=== PATIENT | male | born 1995 | race Two or more races ===

== ENCOUNTER 2023-01-07 15:32 | Outpatient (REF) | payer MEDICAID, SELFPAY ==
--- NOTE | ~2023-01-07 | XR_ITS ---
EXAMINATION: XR SHOULDER, RIGHT CLINICAL INFORMATION: Chronic right shoulder pain. COMPARISON: None available. TECHNIQUE: Four views of the right shoulder. FINDINGS: The bones and soft tissues are normal. No fracture. Glenohumeral and acromioclavicular alignment is anatomic with normal joint space. No abnormal soft tissue calcifications. XR/XR shoulder RT min 2V IMPRESSION: Normal right shoulder.
== END 2023-01-07 15:33 | disposition home or self-care (01) ==
LOC: HO.HHCX 15:32
PROVIDERS: Visit Provider Internal Medicine
DX: M25.511 Pain in right shoulder (principal)
CPT/HCPCS: 73030

== ENCOUNTER 2024-01-12 11:43 | Outpatient (REF) | payer MEDICAID, SELFPAY ==
[2024-01-12 13:21] LABS: MANUAL DIFF FLAG NO
[2024-01-12 13:37] LABS: Basophils Absolute Auto 0.1 X10*3/uL (0.0-0.2); Basophils Percent Auto 1.4 % (0-2); Eosinophils Absolute Auto 0.1 X10*3/uL (0.0-0.4); Eosinophils Percent Auto 3.2 % (0-4); Hematocrit 40.2 % (42.0-52.0); Hemoglobin 13.3 g/dl (14.0-18.0); Imm Gran Abs Auto 0.01 X10*3/uL (0.00-0.03); Imm Gran Pct Auto 0.2 % (0.0-0.4); Lymphocytes Absolute Auto 1.2 X10*3/uL (1.2-4.9); Lymphocytes Percent Auto 28.6 % (20-40); Mean Corpuscular HGB Conc 33.1 g/dl (31.0-36.0); Mean Corpuscular Hemoglobin 31.5 pg (27.0-33.0); Mean Corpuscular Volume 95.3 fL (80.0-98.0); Mean Platelet Volume 11.3 fL (9.4-12.4); Monocytes Absolute Auto 0.4 X10*3/uL (0.1-1.2); Monocytes Percent Auto 9.9 % (2-11); Neutrophils Absolute Auto 2.5 x10*3/uL (2.0-8.3); Neutrophils Percent Auto 56.7 % (45-73); Platelet Count 191 X10*3/uL (160-400); Red Blood Count 4.22 X10*6/uL (4.60-5.80); Red Cell Distribution Width 11.7 % (11.0-16.0); White Blood Count 4.3 X10*3/uL (4.8-10.8)
[2024-01-12 13:52] LABS: Appearance Urine Clear; Color Urine Yellow; Glucose Urine UA Negative (Negative); Leukocyte Esterase Urine Negative (Negative); Nitrite Urine Negative (Negative); PH 6.5 (5.0-9.0); Urine Blood Negative (Negative); Urine Ketones Negative (Negative); Urine Protein Negative (Neg-Trace)
[2024-01-12 14:00] LABS: Bacteria Urine None Seen (None Seen); Hyaline Casts Urine 0-2 /LPF (0-2); RBC Urine 0-2 /HPF (0-2); Squamous Epithelial Cell Urine 0-2 /HPF (0-2); WBC Urine 0-5 /HPF (0-5)
[2024-01-12 14:11] LABS: Alanine Aminotransferase 13 U/L (0-40); Albumin Level 4.4 g/dL (3.5-5.0); Alkaline Phosphatase 55 U/L (39-117); Anion Gap 11 (12-20); Aspartate Amino Transferase 15 U/L (5-37); Bilirubin Total 0.4 mg/dL (0.0-1.0); Blood Urea Nitrogen 8 mg/dL (9-16); Calcium 9.8 mg/dL (8.4-10.2); Carbon Dioxide 26 mmol/L (22-29); Chloride 110 mmol/L (96-108); Estimated Glomerular Filt Rate > 60; Glucose Random 88 mg/dL (60-115); Potassium 4.5 mmol/L (3.3-5.1); Sodium 142 mmol/L (135-145); Total Protein 7.1 g/dL (6.5-8.0)
[2024-01-13 08:37] LABS: HBS Num1 8.93 mIU/mL (0-7.99); HBc Num1 0.11 S/CO (0.00-0.79); HBsAGNum1 0.48 S/CO (0.00-0.99); HIV AB/AG Nonreactive (Nonreactive); HIV Num 1 0.04 S/CO (0.00-0.99); Hepatitis B Core Antibody Nonreactive (Nonreactive); Hepatitis B Surface Antigen Negative (Negative); ~HepC Num1 0.09 S/CO (0.00-0.79); ~Hepatitis C Antibody Nonreactive (Nonreactive)
[2024-01-13 09:32] LABS: HBS Num2 9.39 mIU/mL (0-7.99); HBS Num3 9.42 mIU/mL (0-7.99); ~Hepatitis B Surface Antibody GRAYZONE (Nonreactive)
[2024-01-13 19:33] LABS: Immunoglobulin A 273 mg/dL (47-310); Transglutaminase IgA <1.0 U/mL
== END 2024-01-12 11:44 | disposition home or self-care (01) ==
LOC: HO.HHCL 11:43
PROVIDERS: Visit Provider Emergency Medicine
DX: R10.84 Generalized abdominal pain (principal)
CPT/HCPCS: 36415; 80053; 81001; 82784; 85025; 86364; 86704; 86706; 86803; 87340; 87389

== ENCOUNTER 2024-01-25 08:57 | Outpatient (REF) | payer MEDICAID, SELFPAY ==
--- NOTE | ~2024-01-25 | CT_ITS ---
EXAMINATION: CT ABDOMEN AND PELVIS WITH CONTRAST CLINICAL INFORMATION: History of chronic diffuse abdominal pain and nausea COMPARISON: None TECHNIQUE: Multiple axial images were obtained from the superior aspect of the liver through the pubic symphysis after the administration of 85 mL of intravenous Omnipaque. Images were evaluated on independent dedicated 3-D workstation and 3-D images were reconstructed with concurrent radiologist supervision and subsequently interpreted. Oral contrast was administered. This CT examination was performed using dose optimization techniques as appropriate, variously including the following: *Automated exposure control *Adjustment of mA and/or kV according to patient size (this includes techniques or standardized protocols for targeted exams where dose is matched to indication/reason for exam; i.e. extremities or head) *Use of iterative reconstruction technique Motion Limited study of the upper abdomen. DLP: 286 mGy-cm FINDINGS: LUNG BASES: The visualized lung bases are clear. CARDIOMEDIASTINUM: The visualized heart is normal in size without pericardial effusion. No coronary artery calcification. LIVER: Homogeneous in attenuation. Normal in size. GALLBLADDER: Noninflamed. BILIARY SYSTEM: No intrahepatic or extrahepatic biliary dilation. PANCREAS: Homogeneous in attenuation. SPLEEN: Normal in size. GENITOURINARY: Bilateral kidneys demonstrate symmetric enhancement. No perinephric fluid collection. No renal calculi. No hydroureteronephrosis. ADRENAL GLANDS: Unremarkable. REPRODUCTIVE: Prostate present. GASTROINTESTINAL: The visualized alimentary tract is normal in course. No evidence of obstruction. APPENDIX: The appendix is not visualized; however, no pericecal inflammatory changes are seen in the right lower quadrant. PERITONEUM: No pneumoperitoneum. No intra-abdominal fluid collection. VASCULATURE: The abdominal aorta is normal in course and caliber. LYMPH NODES: No pathologically enlarged abdominal or pelvic lymph nodes. SOFT TISSUES/MUSCULOSKELETAL: There is no acute fracture or significant focal osseous lesion. CT/CT abdomen pelvis w IV con IMPRESSION: No acute abdominal or pelvic pathology. Fleischner guidelines were followed. Electronically signed by: Saqib Martinez DO 02/15/2024 07:15 PM [facility]
[2024-01-25] MEDS: iohexoL 350 MG/ML 100 ML INFUS..BTL IV (11:39)
[2024-01-25] MEDS: Barium Sulfate Oral (Mocha) 450 ML ORAL.SUSP PO ×2 (11:39)
== END 2024-01-25 08:58 | disposition home or self-care (01) ==
LOC: HO.CT 08:57
PROVIDERS: Visit Provider Emergency Medicine
DX: R10.84 Generalized abdominal pain (principal)
CPT/HCPCS: 74177; Q9967

== ENCOUNTER 2024-02-29 09:13 | Outpatient (REF) | payer MEDICAID, SELFPAY ==
[2024-02-29 10:50] LABS: Hematocrit 40.9 % (42.0-52.0); Hemoglobin 13.3 g/dl (14.0-18.0); Mean Corpuscular HGB Conc 32.5 g/dl (31.0-36.0); Mean Corpuscular Hemoglobin 31.4 pg (27.0-33.0); Mean Corpuscular Volume 96.5 fL (80.0-98.0); Mean Platelet Volume 10.9 fL (9.4-12.4); Platelet Count 191 X10*3/uL (160-400); Red Blood Count 4.24 X10*6/uL (4.60-5.80); Red Cell Distribution Width 12.1 % (11.0-16.0); White Blood Count 4.3 X10*3/uL (4.8-10.8)
[2024-02-29 11:00] LABS: Estimated Average Glucose 105 mg/dL; Hemoglobin A1C 116.8468 umol/L; Hemoglobin A1c % 5.3 % (<6.0); Total Hemoglobin (HGBA1C) 3372.5871 umol/L
[2024-02-29 11:39] LABS: Alanine Aminotransferase 25 U/L (0-40); Albumin Level 4.4 g/dL (3.5-5.0); Alkaline Phosphatase 53 U/L (39-117); Anion Gap 9 (12-20); Aspartate Amino Transferase 21 U/L (5-37); Bilirubin Total 0.3 mg/dL (0.0-1.0); Blood Urea Nitrogen 9 mg/dL (9-16); C Reactive Protein < 0.04 mg/dL (< or = 0.50); Calcium 9.4 mg/dL (8.4-10.2); Carbon Dioxide 29 mmol/L (22-29); Chloride 108 mmol/L (96-108); Estimated Glomerular Filt Rate > 60; Glucose Random 95 mg/dL (60-115); Iron 44 mcg/dL (45-160); Percent Iron Saturation 17 % (15-50); Sodium 142 mmol/L (135-145); Total Iron Binding Capacity 252 mcg/dL (228-428); Total Protein 7.1 g/dL (6.5-8.0); Unsaturated Iron Binding 208 ug/dL
[2024-02-29 11:50] LABS: Folate 9.9 ng/mL (> or = 4.0); TSH reflex Free T4 1.46 uIU/mL (0.32-4.0); Vitamin B12 1085 pg/mL (200-900)
[2024-02-29 11:54] LABS: Ferritin 78 ng/mL (20-250)
[2024-03-01 16:14] LABS: Immunoglobulin A 267 mg/dL (47-310); Immunoglobulin G 1197 mg/dL (600-1640)
[2024-03-01 17:43] LABS: Transglutaminase IgA <1.0 U/mL
== END 2024-02-29 09:14 | disposition home or self-care (01) ==
LOC: HO.LAB 09:13
PROVIDERS: PCP Emergency Medicine; Visit Provider Internal Medicine
DX: R19.4 Change in bowel habit (principal); D64.9 Anemia, unspecified; R10.9 Unspecified abdominal pain
CPT/HCPCS: 36415; 80053; 82607; 82728; 82746; 82784; 83036; 83540; 84443; 85027; 86140; 86364; 99202

== ENCOUNTER 2024-02-29 09:13 | Outpatient (AMB) | payer MEDICAID, SELFPAY ==
--- NOTE | 2024-02-29 09:14 | A.OFFVIS_ITS ---
Vital Signs 02/29/24 09:15 Height 5 ft 11 in Weight 176 lb 5.917 oz BMI 24.6 BP 129/78 Blood Pressure Location Lt brachial Position Sitting Pulse 68 Intake Visit Reasons: Generalized abdominal pain Intake Note: Dariel presents in the office as a new patient for generalizedd abdominal pains. CC: HE states that he had lost 50lbs due to his stomach issues and now has gained 15. Stomach bothers him every time he eats. After fruits and veggies but he noticed as well when he eats cabbage and dairy that his stomach bothers him. He states he gets both constipation and diarrhea - he has gotten a lot better. He used to have 6 BMs a day and now it is up to 1-3 times a day. Allergies cabbage Allergy (Mild, Verified 02/29/24 09:17) stomach issues Milk Containing Products (Dairy) Allergy (Mild, Verified 02/29/24 09:17) Swelling tomato Allergy (Mild, Verified 02/29/24 09:17) Anaphylaxis HPI Comments Details: 28 y.o M with longstanding abd discomfort and diarrhea who is here today for recent change in bowel habits. Reports for 5 years he has on and off abd discomfort on both R and L side which is associated with loose BMs up to 2-3 a day. Recently for the past 6 months the pain is now everyday and more severe. BMs have also increased to 6 per day. Has been avoiding dairy for the last couple of weeks and thinks that has helped. Reports frequent lightheadedness due to diarrhea. Also has nausea and reduced appetite. Reports losing 50 lbs in the past year but denies having to change clothing side? No fam hx of IBD or CRC in first degree relatives. Pt used to smoke marijuana - stopped for a year. Also stopped drinking x 2 years. [facility] Family History (Updated 02/29/24 @ 09:19 by MIREYA Holman) Maternal Aunt Colon cancer Review of Systems Const All systems reviewed & are unremarkable except as noted in HPI and below Physical Exam Vital Signs: Last Vital Signs Pulse 68 02/29/24 09:15 BP 129/78 02/29/24 09:15 BMI result Body Mass Index 24.6 Results Reviewed Results Reviewed: CT Abd/pel with IV contrast 12/2023: GASTROINTESTINAL: The visualized alimentary tract is normal in course. No evidence of obstruction. Assessment & Plan Assessment & Plan (1) Abdominal pain: Code(s): R10.9 - Unspecified abdominal pain Category: Medical (2) Change in bowel habit: Code(s): R19.4 - Change in bowel habit Category: Medical (3) Anemia: Code(s): D64.9 - Anemia, unspecified Category: Medical Plan Abd pain with change in bowel habits. Also noted on labs is normocytic anemia. Degree of weight loss is unclear. Hep serologies and HIV negative. LFTs normal. CT abd/pel normal. Ddx include PUD, IBD, gallstones, mass, IBS. Plan: - Labs as below - US Abd - Get weights from past 24 months from PCP - Indication for EGD/[place] to be reviewed based on results of work up Follow up 5 weeks (after x-mas) Orders: Orders 2 Comprehensive Met. Panel Today R19.4 - Change in bowel habit Immunoglobulin A Today R19.4 - Change in bowel habit Immunoglobulin G Today R19.4 - Change in bowel habit Vitamin B12 and Folate Today D64.9 - Anemia, unspecified US abdomen complete Today R10.9 - Unspecified abdominal pain Complete Blood Count no Diff Today R19.4 - Change in bowel habit TSH reflex Free T4 Today R19.4 - Change in bowel habit Transglutaminase IgA Today R19.4 - Change in bowel habit Calprotectin, Fecal Today R19.4 - Change in bowel habit C Reactive Protein Today R19.4 - Change in bowel habit Ferritin Today D64.9 - Anemia, unspecified IRON PROFILE Today D64.9 - Anemia, unspecified Hemoglobin A1c Today R10.9 - Unspecified abdominal pain Coding Level of Care Code New Pt Level 4 (72668) Diagnoses Abdominal pain R10.9 Change in bowel habit R19.4 Anemia D64.9
[2024-02-29 09:15] VITALS: BP 129/78; PULSE 68; BMI 24.6
== END 2024-02-29 09:42 | disposition home or self-care (01) ==
PROVIDERS: Visit Provider Internal Medicine
DX: R10.9 Unspecified abdominal pain (principal); R19.4 Change in bowel habit; D64.9 Anemia, unspecified
CPT/HCPCS: 99204

== ENCOUNTER 2024-03-06 11:05 | Outpatient (REF) | payer MEDICAID, SELFPAY ==
[2024-03-12 17:19] LABS: Calprotectin, Fecal 27 mcg/g
== END 2024-03-06 11:06 | disposition home or self-care (01) ==
LOC: HO.LNP 11:05
PROVIDERS: Visit Provider Internal Medicine
DX: R19.4 Change in bowel habit (principal)
CPT/HCPCS: 83993

== ENCOUNTER 2024-03-16 10:45 | Outpatient (REF) | payer MEDICAID, SELFPAY ==
--- NOTE | ~2024-03-16 | US_ITS ---
EXAMINATION: US ABDOMEN COMPLETE CLINICAL INFORMATION: Unspecified abdominal pain. COMPARISON: CT abdomen and pelvis with contrast 01/25/2024. TECHNIQUE: Real-time imaging of the abdominal viscera. FINDINGS: PANCREAS: Visualized portions are unremarkable. ABDOMINAL AORTA: The proximal, mid, and distal segments are normal in caliber. INFERIOR VENA CAVA: Visualized portions are normal. LIVER: Liver is borderline enlarged at 17 cm in greatest length. The liver contour is normal. Parenchymal echogenicity is normal. No focal hepatic lesion. There is no intrahepatic biliary duct dilatation seen. GALLBLADDER: The gallbladder is physiologically distended without evidence of stones, sludge, polyps, wall thickening or pericholecystic fluid. COMMON BILE DUCT: Normal in caliber measuring 0.3 cm in diameter. RIGHT KIDNEY: No hydronephrosis. No renal calculi or focal parenchymal lesions. The kidney measures 11.1 cm in maximum dimension. LEFT KIDNEY: No hydronephrosis. No renal calculi or focal parenchymal lesions. The kidney measures 10.8 cm in maximum dimension. SPLEEN: The spleen measures 9.3 cm in maximum dimension. FREE FLUID: None. US/US abdomen complete IMPRESSION: Negative exam. A cause for the patient's abdominal pain has not been found. Electronically signed by: Kamari Goff MD 03/17/2024 03:07 PM [facility]
== END 2024-03-16 10:46 | disposition home or self-care (01) ==
LOC: HO.US 10:45
PROVIDERS: PCP Emergency Medicine; Visit Provider Internal Medicine
DX: R10.9 Unspecified abdominal pain (principal)
CPT/HCPCS: 76700